=== PATIENT | male | born 1970 | race Caucasian/White ===

== ENCOUNTER 2016-05-21 19:17 | Emergency (ER) | payer MEDICAID ==
--- NOTE | 2016-05-21 19:25 | EDPHY ---
H & P HPI/ROS: CHIEF COMPLAINT: Intoxicated HISTORY OF PRESENT ILLNESS: The patient is a 46 y/o male arriving via EMS after he was found "stumbling in traffic." He has a history of hypertension, alcohol abuse, and homelessness. He reports he has not taken his hypertension medications for the last 2 weeks because he lost them. He denies any pain or trauma today. He endorses heavy alcohol use, but is unable to give a quantity. He has been cooperative for EMS and is oriented for me stating, "I'm in the [facility]." REVIEW OF SYSTEMS: A 10 point review of systems was performed and is negative with the exception of the elements mentioned in the history of present illness. * Source: Patient, EMS - Medical/Surgical History PMH: PMH includes: 1. Hypertension 2. Alcohol abuse 3. Homelessness 4. Hepatitis C Hx Asthma: No Hx Chronic Respiratory Disease: No Hx Diabetes: No Hx Cardiac Disease: No Hx Renal Disease: No Hx Cirrhosis: No Hx Alcoholism: Yes Hx HIV/AIDS: No Hx Splenectomy or Spleen Trauma: No Other PMH: Hep C, ETOH - Social History Smoking Status: Heavy smoker Alcohol Use: Heavy Additional Social History: smoker, homeless, heavy alcohol use - Physical Exam Exam: General Appearance: No acute distress. Head: Atraumatic. Eyes: Pupils equal and round, mild bilateral conjunctival injection, no discharge. Anicteric. ENT, Mouth: Mucous membranes are slightly dry, no oropharyngeal erythema or edema. Neck: No lymphadenopathy, supple. Respiratory: Lungs are clear to auscultation anterolaterally; no wheezes, rales , or rhonchi. Cardiovascular: Regular rate and rhythm; no murmur, rub, or gallop. Gastrointestinal: Abdomen is soft and non tender, no masses or organomegaly, bowel sounds normal. Skin: Warm and dry, no rashes, normal color. Healing laceration lateral to left eyebrow. Dry scaliness on scalp. Back: Nontender to palpation over the thoracolumbar spine. Extremities: No lower extremity edema, no calf tenderness or swelling. Neurological: Arouses to moderate stimulation and oriented to person and place. Moving all four extremities easily and equally. Slurred speech consistent with alcohol intoxication. Psychiatric: No agitation. Constitutional: Initial Vital Signs Temperature (C) 36.5 C 05/21/16 19:27 Heart Rate 93 05/21/16 19:27 Respiratory Rate 20 05/21/16 19:27 Blood Pressure 109/83 H 05/21/16 19:27 O2 Sat (%) 93 05/21/16 19:27 O2 Delivery Mode Room Air O2 (L/minute) 2 Allergies/Adverse Reactions: No Known Allergies Allergy (Verified 05/21/16 19:26) Home Medications: Medication Instructions Recorded Depakote 05/21/16 Propranolol Sr 05/21/16 Medical Decision Making ED Course/Re-evaluation: No signs of trauma. Presentation consistent with alcohol intoxication. Plan to observe until patient is sober enough for detox. Breathalyzer: 364. He remained stable while in ED with gradual clearing of his mental status. When he was able to ambulate on his own arrangements were made for him to be transported to [facility]. Differential Diagnosis: Altered mental status including but not limited to hypoglycemia, infectious process, electrolyte abnormality, head injury and intoxicants. - Data Points Medications Given: Discontinued Medications Chlordiazepoxide (Librium 25 Mg Prepack#6) 1 btl TAKEPADRONI EDNOW ONE Stop: 05/21/16 19:57 Last Admin: 05/22/16 01:17 Dose: 1 btl Departure - Departure Disposition: Home, Routine, Self-Care Clinical Impression: Alcoholic intoxication Qualifiers: Complication of substance-induced condition: uncomplicated Qualified Code(s): F10.120 - Alcohol abuse with intoxication, uncomplicated Condition: Good Instructions: Chlordiazepoxide (By mouth), Alcohol Intoxication (ED), Abuse of Alcohol (ED) Additional Instructions: Medically clear for the [facility]. Please use librium protocol. Referrals: [facility] 24 Hours [Outside] - As per Instructions Report Scribed for: Raissa Clay Report Scribed by: Brittany Conley Date of Report: 05/21/16 Time of Report: 19:26 Physician Review and Approval Statement: 05/22/16 00:34 Portions of this note were transcribed by the registered medical transcriptionist. I, Dr. Raissa Clay, personally performed the history, physical exam, and medical decision- making; and confirmed the accuracy of the information in the transcribed note.
[2016-05-21 19:29] VITALS: TEMP 97.7
[2016-05-21] MEDS ORDERED: CHLORDIAZEPOXIDE 25MG PREPK#6 BTL TAKEHOME ONE (19:56)
[2016-05-21 22:54] VITALS: RESP 16
[2016-05-22] MEDS ORDERED: CHLORDIAZEPOXIDE 25MG PREPK#6 BTL TAKEHOME ONE (01:14)
[2016-05-22 01:36] VITALS: BP 98/64; PULSE 87; O2SAT 97
== END 2016-05-22 01:35 | disposition home or self-care (01) ==
LOC: EDUNIT#
DX: F10.120 Alcohol abuse with intoxication, uncomplicated (principal); I10 Essential (primary) hypertension; F17.200 Nicotine dependence, unspecified, uncomplicated

== ENCOUNTER 2016-07-11 13:20 | Emergency (ER) | payer MEDICAID ==
[2016-07-11] MEDS ORDERED: LORazepam 2 MG/ML INJ IVP ONE ×2 (13:31→14:32)
--- NOTE | 2016-07-11 13:32 | EDPHY ---
H & P Time Seen by Provider: 07/11/16 13:24 HPI/ROS: CHIEF COMPLAINT: I am getting the shakes HISTORY OF PRESENT ILLNESS: This 46-year-old man presents with chief complaint of concern of alcohol withdrawal. He drinks heavily and has history of alcohol withdrawal seizures, his discharge summary dated 02/06/2015 is reviewed by myself. Patient drinks a 5th of alcohol today. Is brought in by paramedics today with feeling shaky after his last drink was yesterday. Feels pins and needles and felt sweaty even though it is raining outside. Nausea but no vomiting. Symptoms moderate today. Identical to previous withdrawal symptoms. Last seizure 2 weeks ago. REVIEW OF SYSTEMS: Eye: no change in vision ENT: no sore throat Cardiac: no chest pain or syncope Pulmonary: no cough or SOB Abdomen: HPI, no abdominal pain Musculoskeletal: no back pain Skin: no rash Neuro: no headache Constitutional: no fever : no urinary symptoms A comprehensive 10 point review of systems is otherwise negative aside from elements mentioned in the history of present illness. PAST MEDICAL HISTORY: Alcoholism with withdrawal seizures, thrombocytopenia, pneumothorax and rib fractures. Social history: Frequent alcohol, tobacco smoker General Appearance: Alert and conversant, cooperative. Eyes: No scleral icterus. ENT, Mouth: Normal mucous membranes. Respiratory: Normal respiratory effort, breath sounds equal, lungs are clear to auscultation. Cardiovascular: Regular rate and rhythm. Gastrointestinal: Abdomen is soft and non tender. Neurological: Alert and oriented x3. Normally conversant. Face symmetric, normal movement and sensation in all extremities. Moderate resting tremor. Not confused. Skin: Warm and dry, no rashes. Musculoskeletal: No peripheral edema and no joint swelling. Psychiatric: Not agitated. Denies hallucinations or suicidal ideation. Emergency Department course/MDM: Patient presents in acute mild to moderate alcohol withdrawal. No seizures or delirium tremens today. Ativan 2 mg IV. 1430: Improved, not shaking anymore. Additional 1 mg IV Ativan and discharged to the [facility] with Librium. Smoking Status: Heavy smoker Constitutional: Initial Vital Signs Temperature (C) 36.7 C 07/11/16 13:39 Heart Rate 100 07/11/16 13:39 Respiratory Rate 20 07/11/16 13:39 Blood Pressure 138/97 H 07/11/16 13:39 O2 Sat (%) 95 07/11/16 13:39 O2 Delivery Mode Room Air Allergies/Adverse Reactions: No Known Allergies Allergy (Verified 05/21/16 19:26) Home Medications: Medication Instructions Recorded Depakote 05/21/16 Propranolol Sr 05/21/16 Medical Decision Making Differential Diagnosis: Differential for shaking considered including but not limited to fever or influenza, sepsis, alcohol withdrawal , seizure disorder - Data Points Laboratory Results: Laboratory Results 07/11/16 13:45 07/11/16 13:45 07/11/16 07/11/16 13:45 13:45 WBC 5.39 10^3/uL 10^3/uL (3.80-9.50) RBC 4.65 10^6/uL 10^6/uL (4.40-6.38) Hgb 15.7 g/dL g/dL (13.7-17.5) Hct 45.9 % % (40.0-51.0) MCV 98.7 fL fL (81.5-99.8) MCH 33.8 pg pg (27.9-34.1) MCHC 34.2 g/dL g/dL (32.4-36.7) RDW 14.3 % % (11.5-15.2) Plt Count 104 10^3/uL L 10^3/uL (150-400) MPV 10.7 fL fL (8.7-11.7) Neut % (Auto) 81.3 % H % (39.3-74.2) Lymph % (Auto) 11.7 % L % (15.0-45.0) Stevens % (Auto) 5.9 % % (4.5-13.0) Eos % (Auto) 0.2 % L % (0.6-7.6) Baso % (Auto) 0.7 % % (0.3-1.7) Nucleat RBC Rel Count 0.0 % % (0.0-0.2) Absolute Neuts (auto) 4.38 10^3/uL 10^3/uL (1.70-6.50) Absolute Lymphs (auto) 0.63 10^3/uL L 10^3/uL (1.00-3.00) Absolute Monos (auto) 0.32 10^3/uL 10^3/uL (0.30-0.80) Absolute Eos (auto) 0.01 10^3/uL L 10^3/uL (0.03-0.40) Absolute Basos (auto) 0.04 10^3/uL 10^3/uL (0.02-0.10) Absolute Nucleated RBC 0.00 10^3/uL 10^3/uL (0-0.01) Immature Gran % 0.2 % % (0.0-1.1) Immature Gran # 0.01 10^3/uL 10^3/uL (0.00-0.10) Sodium 139 mEq/L mEq/L (134-144) Potassium 4.7 mEq/L mEq/L (3.5-5.2) Chloride 99 mEq/L mEq/L (97-110) Carbon Dioxide 23 mEq/l mEq/l (22-31) Anion Gap 17 mEq/L H mEq/L (8-16) BUN 8 mg/dL mg/dL (7-23) Creatinine 0.6 mg/dL L mg/dL (0.7-1.3) Estimated GFR > 60 Glucose 84 mg/dL mg/dL (70-100) Calcium 9.5 mg/dL mg/dL (8.5-10.4) Medications Given: Discontinued Medications Chlordiazepoxide (Librium 25 Mg Prepack#6) 1 btl TAKEHOME EDNOW ONE Stop: 07/11/16 14:33 Last Admin: 07/11/16 14:42 Dose: 1 btl Lorazepam (Ativan Injection) 2 mg IVP EDNOW ONE Stop: 07/11/16 13:32 Last Admin: 07/11/16 13:53 Dose: 2 mg Lorazepam (Ativan Injection) 1 mg IVP EDNOW ONE Stop: 07/11/16 14:33 Last Admin: 07/11/16 14:42 Dose: 1 mg Departure - Departure Disposition: Home, Routine, Self-Care Clinical Impression: Alcohol withdrawal Qualifiers: Complication of substance-induced condition: uncomplicated Qualified Code(s): F10.230 - Alcohol dependence with withdrawal, uncomplicated Condition: Good Instructions: Alcohol Withdrawal (ED) Referrals: Patient,NotPresent [Primary Care Provider] - As per Instructions [facility],. [Clinic] - As per Instructions
[2016-07-11 13:51] LABS: % IMMATURE GRANULYOCYTES 0.2 % (0.0-1.1); ABSOLUTE IMMATURE GRANULOCYTES 0.01 10^3/uL (0.00-0.10); ADD DIFF? NO; ADD MORPH? NO; ADD SCAN? NO; ATYPICAL LYMPHOCYTE FLAG 10 (0-99); FRAGMENT RBC FLAG 0 (0-99); HEMATOCRIT 45.9 % (40.0-51.0); HEMOGLOBIN 15.7 g/dL (13.7-17.5); LEFT SHIFT FLG 0 (0-99); LIPEMIA HEMOLYSIS FLAG 90 (0-99); MEAN CELL HEMOGLOBIN 33.8 pg (27.9-34.1); MEAN CELL HEMOGLOBIN CONCENTR. 34.2 g/dL (32.4-36.7); MEAN CELL VOLUME 98.7 fL (81.5-99.8); MEAN PLATELET VOLUME 10.7 fL (8.7-11.7); PLATELET CLUMPS FLAG 10 (0-99); PLATELET COUNT 104 10^3/uL (150-400); RED BLOOD CELL COUNT 4.65 10^6/uL (4.40-6.38); RED CELL DISTRIBUTION WIDTH 14.3 % (11.5-15.2)
[2016-07-11 14:03] LABS: ANION GAP 17 mEq/L (8-16); CALCIUM 9.5 mg/dL (8.5-10.4); CARBON DIOXIDE 23 mEq/l (22-31); CHLORIDE 99 mEq/L (97-110); CREATININE 0.6 mg/dL (0.7-1.3); GLOMERULAR FILTRATION RATE > 60; GLUCOSE 84 mg/dL (70-100); POTASSIUM 4.7 mEq/L (3.5-5.2); SODIUM 139 mEq/L (134-144)
[2016-07-11] MEDS ORDERED: CHLORDIAZEPOXIDE 25MG PREPK#6 BTL TAKEHOME ONE (14:32)
[2016-07-11 14:45] VITALS: BP 132/100; PULSE 86; RESP 16; TEMP 98.6; O2SAT 96
== END 2016-07-11 15:15 | disposition home or self-care (01) ==
LOC: EDUNIT#
DX: F10.230 Alcohol dependence with withdrawal, uncomplicated (principal); F17.200 Nicotine dependence, unspecified, uncomplicated
CPT/HCPCS: 96374; J2060

== ENCOUNTER 2016-08-13 23:51 | Emergency (ER) | payer MEDICAID ==
[2016-08-13] MEDS ORDERED: LORazepam 2 MG/ML INJ ONE (23:57)
[2016-08-13] MEDS ORDERED: LORazepam 2 MG/ML INJ IVP ONE (23:57)
[2016-08-14] MEDS ORDERED: chlordiazePOXIDE 25 MG CAP PO SCH
[2016-08-14 00:06] VITALS: RESP 16
[2016-08-14 00:28] LABS: ALANINE AMINOTRANSFERASE 724 IU/L (21-72); ALBUMIN 4.9 g/dL (3.5-5.0); ALKALINE PHOSPHATASE 93 IU/L (38-126); ANION GAP 18 mEq/L (8-16); BILIRUBIN,TOTAL 0.6 mg/dL (0.1-1.4); CALCIUM 8.8 mg/dL (8.5-10.4); CARBON DIOXIDE 22 mEq/l (22-31); CHLORIDE 114 mEq/L (97-110); CREATININE 0.7 mg/dL (0.7-1.3); GLOMERULAR FILTRATION RATE > 60; GLUCOSE 89 mg/dL (70-100); POTASSIUM 4.7 mEq/L (3.5-5.2); SODIUM 154 mEq/L (134-144); TOTAL PROTEIN 8.2 g/dL (6.3-8.2)
[2016-08-14 00:46] LABS: SPECIMEN HEMOLYSIS 122
[2016-08-14 00:47] LABS: ASPARTATE AMINOTRANSFERASE 806 IU/L (17-59); ETHANOL SERUM 436 mg/dL (0-10)
[2016-08-14] MEDS ORDERED: NS 1,000 ML IV ONE (00:48)
[2016-08-14 01:11] LABS: % IMMATURE GRANULYOCYTES 1.2 % (0.0-1.1); ABSOLUTE IMMATURE GRANULOCYTES 0.08 10^3/uL (0.00-0.10); ADD DIFF? NO; ADD MORPH? NO; ADD SCAN? NO; ATYPICAL LYMPHOCYTE FLAG 0 (0-99); FRAGMENT RBC FLAG 0 (0-99); HEMATOCRIT 52.7 % (40.0-51.0); HEMOGLOBIN 17.4 g/dL (13.7-17.5); LEFT SHIFT FLG 10 (0-99); LIPEMIA HEMOLYSIS FLAG 80 (0-99); MEAN CELL HEMOGLOBIN 34.7 pg (27.9-34.1); MEAN CELL VOLUME 105.2 fL (81.5-99.8); MEAN PLATELET VOLUME 9.9 fL (8.7-11.7); PLATELET CLUMPS FLAG 10 (0-99); PLATELET COUNT 128 10^3/uL (150-400); RED BLOOD CELL COUNT 5.01 10^6/uL (4.40-6.38); RED CELL DISTRIBUTION WIDTH 13.9 % (11.5-15.2)
[2016-08-14] MEDS ORDERED: CHLORDIAZEPOXIDE 25MG PREPK#6 BTL TAKEHOME ONE (02:47)
--- NOTE | 2016-08-14 02:49 | EDPHY ---
H & P Stated Complaint: witness AMS/poss EtOH withdrawal seizure during intake at [facility] Time Seen by Provider: 08/13/16 23:52 HPI/ROS: HPI The patient presents with concern for seizure while at the [facility] earlier tonight. He was noted to have some twitching activity which was witnessed by staff. It lasted for seconds and afterward he was tired appearing. He says he has been drinking though does have a history of seizures. He now feels tired though denies any other complaints.. REVIEW OF SYSTEMS Constitutional: No fever, no chills. Eyes: No discharge. ENT: No sore throat. Cardiovascular: No chest pain, no palpitations. Respiratory: No cough, no shortness of breath. Gastrointestinal: No abdominal pain, no vomiting. Genitourinary: No hematuria. Musculoskeletal: No back pain. Skin: No rashes. Neurological: No headache. PMHx: Seizure disorder, not on any medications Soc Hx: Alcohol abuse PHYSICAL General Appearance: Alert, no distress Eyes: Pupils equal and round no pallor or injection ENT, Mouth: Mucous membranes moist Respiratory: There are no retractions, lungs are clear to auscultation Cardiovascular: Regular rate and rhythm Gastrointestinal: Abdomen is soft and non-tender, no masses, bowel sounds normal Neurological: A&O, moves all extremities, no hand tremor Skin: Warm and dry, no rashes Musculoskeletal: Neck is supple non tender Extremities: symmetrical, full range of motion Psychiatric: Patient is oriented X 3, there is no agitation Source: Patient, EMS Exam Limitations: Intoxication - Personal History Current Tetanus/Diphtheria Vaccine: Unsure - Medical/Surgical History Hx Asthma: No Hx Chronic Respiratory Disease: No Hx Diabetes: No Hx Cardiac Disease: No Hx Renal Disease: No Hx Cirrhosis: No Hx Alcoholism: Yes Hx HIV/AIDS: No Hx Splenectomy or Spleen Trauma: No Other PMH: PMHx: Hep C, ETOH. PSHx: - Social History Smoking Status: Heavy smoker Constitutional: Initial Vital Signs Temperature (C) 36.4 C 08/14/16 00:03 Heart Rate 89 08/14/16 00:03 Respiratory Rate 16 08/14/16 00:03 Blood Pressure 127/96 H 08/14/16 00:03 O2 Sat (%) 92 08/14/16 00:03 O2 Delivery Mode Room Air Allergies/Adverse Reactions: No Known Allergies Allergy (Verified 05/21/16 19:26) Home Medications: Medication Instructions Recorded Depakote 05/21/16 Propranolol Sr 05/21/16 Medical Decision Making Differential Diagnosis: This is a 46-year-old man with history of seizure disorder, alcohol abuse who presents from the [facility] with concern for seizure like activity. Here, he appears somewhat tired, he does not have any seizure activity. He does not have any signs of alcohol withdrawal such as tachycardia , hand tremor. Differential diagnosis includes epilepsy, alcohol withdrawal seizure, alcohol intoxication. In the emergency room, the patient was given IV fluids. Basic labs were checked and showed elevated sodium, likely consistent with dehydration. Alcohol level was performed only elevated. The patient was given a dose of Ativan here. Eventually, the patient was able to walk with a steady gait and was discharged back to the [facility]. - Data Points Laboratory Results: Laboratory Results 08/13/16 23:50 08/13/16 23:50 08/13/16 08/13/16 23:50 23:50 WBC 6.78 10^3/uL 10^3/uL (3.80-9.50) RBC 5.01 10^6/uL 10^6/uL (4.40-6.38) Hgb 17.4 g/dL g/dL (13.7-17.5) Hct 52.7 % H % (40.0-51.0) MCV 105.2 fL H fL (81.5-99.8) MCH 34.7 pg H pg (27.9-34.1) MCHC 33.0 g/dL g/dL (32.4-36.7) RDW 13.9 % % (11.5-15.2) Plt Count 128 10^3/uL L 10^3/uL (150-400) MPV 9.9 fL fL (8.7-11.7) Neut % (Auto) 42.3 % % (39.3-74.2) Lymph % (Auto) 38.9 % % (15.0-45.0) Sedgwick % (Auto) 13.6 % H % (4.5-13.0) Eos % (Auto) 2.8 % % (0.6-7.6) Baso % (Auto) 1.2 % % (0.3-1.7) Nucleat RBC Rel Count 0.0 % % (0.0-0.2) Absolute Neuts (auto) 2.87 10^3/uL 10^3/uL (1.70-6.50) Absolute Lymphs (auto) 2.64 10^3/uL 10^3/uL (1.00-3.00) Absolute Monos (auto) 0.92 10^3/uL H 10^3/uL (0.30-0.80) Absolute Eos (auto) 0.19 10^3/uL 10^3/uL (0.03-0.40) Absolute Basos (auto) 0.08 10^3/uL 10^3/uL (0.02-0.10) Absolute Nucleated RBC 0.00 10^3/uL 10^3/uL (0-0.01) Immature Gran % 1.2 % H % (0.0-1.1) Immature Gran # 0.08 10^3/uL 10^3/uL (0.00-0.10) Sodium 154 mEq/L H mEq/L (134-144) Potassium 4.7 mEq/L mEq/L (3.5-5.2) Chloride 114 mEq/L H mEq/L (97-110) Carbon Dioxide 22 mEq/l mEq/l (22-31) Anion Gap 18 mEq/L H mEq/L (8-16) BUN 9 mg/dL mg/dL (7-23) Creatinine 0.7 mg/dL mg/dL (0.7-1.3) Estimated GFR > 60 Glucose 89 mg/dL mg/dL (70-100) Calcium 8.8 mg/dL mg/dL (8.5-10.4) Total Bilirubin 0.6 mg/dL mg/dL (0.1-1.4) AST 806 IU/L H IU/L (17-59) ALT 724 IU/L H IU/L (21-72) Alkaline Phosphatase 93 IU/L IU/L (38-126) Total Protein 8.2 g/dL g/dL (6.3-8.2) Albumin 4.9 g/dL g/dL (3.5-5.0) Specimen Hemolysis 122 Ethyl Alcohol 436 mg/dL H* mg/dL (0-10) Medications Given: Discontinued Medications Sodium Chloride (Ns) 1,000 mls @ 0 mls/hr IV ONCE ONE PRN Reason: Wide Open Stop: 08/14/16 00:49 Last Admin: 08/14/16 03:11 Dose: Not Given Lorazepam (Ativan Injection) 1 mg IVP EDNOW ONE Stop: 08/13/16 23:58 Last Admin: 08/14/16 00:03 Dose: 1 mg Departure - Departure Disposition: Home, Routine, Self-Care Clinical Impression: Altered mental status Qualifiers: Altered mental status type: unspecified Qualified Code(s): R41.82 - Altered mental status, unspecified Alcoholic intoxication Qualifiers: Complication of substance-induced condition: with delirium Qualified Code(s): F10.121 - Alcohol abuse with intoxication delirium Instructions: Chlordiazepoxide (By mouth), Abuse of Alcohol (ED) Referrals: NONE *PRIMARY CARE P,. [Primary Care Provider] - As per Instructions
[2016-08-14 03:12] VITALS: BP 133/94; PULSE 64; TEMP 97.9; O2SAT 96
== END 2016-08-14 04:23 | disposition home or self-care (01) ==
LOC: EDUNIT#
DX: R41.82 Altered mental status, unspecified (principal); F10.121 Alcohol abuse with intoxication delirium; F17.200 Nicotine dependence, unspecified, uncomplicated
CPT/HCPCS: 96374; G0480; J2060

== ENCOUNTER 2016-08-17 17:00 | Emergency (ER) | payer MEDICAID ==
[2016-08-17 17:16] VITALS: RESP 16
--- NOTE | 2016-08-17 17:30 | EDPHY ---
H & P Time Seen by Provider: 08/17/16 17:07 HPI/ROS: CHIEF COMPLAINT: ETOH fall HISTORY OF PRESENT ILLNESS: This is a 46-year-old presenting to the emergency department right by EMS. EMS stated pt AMS ETOH intoxication, witnesses had seen pt sitting fell landing on face, but then got up started walking with unsteady gait. Witnesses do not report LOC. REVIEW OF SYSTEMS: Review of systems is unobtainable from this patient because of alcohol intoxication Smoking Status: Heavy smoker Physical Exam: General Appearance: no distress. Eyes: Pupils equal and round no pallor or injection. ENT, Mouth: Mucous membranes moist. No mouth lacerations no malocclusion less than 1 cm superficial laceration of the bridge of nose no sutures needed Respiratory: There are no retractions, lungs are clear to auscultation. Cardiovascular: Regular rate and rhythm. Gastrointestinal: Abdomen is soft nondistended, no masses, bowel sounds normal. Neurological: Slurred speech Skin: Warm and dry, no rashes. Less than 1 cm superficial laceration noted to bridge of nose bleeding controlled. Abrasion noted to left knee, Musculoskeletal: Neck is supple nontender. Extremities: Abrasion noted to left knee bleeding controlled. symmetrical, full range of motion. Psychiatric: Patient is oriented to person, there is no agitation. Constitutional: Initial Vital Signs Temperature (C) 36.4 C 08/17/16 17:00 Heart Rate 90 08/17/16 17:00 Respiratory Rate 16 08/17/16 17:00 Blood Pressure 116/76 08/17/16 17:00 O2 Sat (%) 90 L 08/17/16 17:00 O2 Delivery Mode Room Air Allergies/Adverse Reactions: No Known Allergies Allergy (Verified 05/21/16 19:26) Home Medications: Medication Instructions Recorded Depakote 05/21/16 Propranolol Sr 05/21/16 Medical Decision Making ED Course/Re-evaluation: wound irrigation, dressing placed. Sober re-evaluation patient ambulatory with steady gait sent to the [facility] with Librium Differential Diagnosis: Other differential diagnosis considered not limited to seizure due to alcohol withdrawal, CHI , and alcohol withdrawal - Data Points Medications Given: Discontinued Medications Chlordiazepoxide (Librium 25 Mg Prepack#6) 1 btl TAKEHOME EDNOW ONE Stop: 08/17/16 19:26 Last Admin: 06/01/17 19:40 Dose: 1 btl Departure - Departure Disposition: Home, Routine, Self-Care Clinical Impression: Alcohol intoxication Qualifiers: Complication of substance-induced condition: uncomplicated Qualified Code(s): F10.120 - Alcohol abuse with intoxication, uncomplicated Condition: Good Instructions: Chlordiazepoxide (By mouth), Alcohol Intoxication (ED), Abuse of Alcohol (ED) Additional Instructions: Discussed discharge instructions 1. Stop drinking alcohol 2. Monitor for any signs of infection to wounds 3. Patient going to the [facility] Referrals: NONE *PRIMARY CARE P,. [Primary Care Provider] - As per Instructions [facility],. [Clinic] - As per Instructions
[2016-08-17] MEDS ORDERED: CHLORDIAZEPOXIDE 25MG PREPK#6 BTL TAKEHOME ONE (19:25)
[2016-08-17 20:09] VITALS: BP 143/66; PULSE 66; TEMP 97.9; O2SAT 92
== END 2016-08-17 20:09 | disposition home or self-care (01) ==
LOC: EDUNIT#
DX: F10.120 Alcohol abuse with intoxication, uncomplicated (principal); F17.200 Nicotine dependence, unspecified, uncomplicated

== ENCOUNTER 2016-10-02 15:18 | Emergency (ER) | payer MEDICAID ==
--- NOTE | 2016-10-02 15:25 | EDPHY ---
H & P HPI/ROS: HPI CHIEF COMPLAINT: Alcohol withdrawal seizure HISTORY OF PRESENT ILLNESS: This patient is a 46-year-old male homeless, presents to the emergency room, daily alcohol use he drinks vodka, he states his last drink was yesterday, presents to the emergency room by EMS after he had a generalized tonic-clonic seizure. Patient states his last drink was yesterday. He had a seizure today. He tells me takes Depakote. Tells me he has been compliant. Upon arrival here in emergency room he is comp, he is not tachycardic however he did bite the tip of his tongue with no significant laceration, he does have some tremulous extension of his arms. Past Medical History: Daily alcohol use, alcohol draw seizures Past Surgical History: No recent surgical history Social History: Daily alcohol use, homeless, tobacco, denies drugs Family History: Noncontributory ROS REVIEW OF SYSTEMS: A comprehensive 10 point review of systems is otherwise negative aside from elements mentioned in the history of present illness. Exam Constitutional appears well nontoxic, triage nursing summary reviewed, vital signs reviewed, awake/alert. Eyes normal conjunctivae and sclera, EOMI, PERRLA. HENT oropharynx tip of the tongue superficial laceration, normal inspection, atraumatic, moist mucus membranes, no epistaxis, neck supple/ no meningismus, no raccoon eyes. Respiratory clear to auscultation bilaterally, normal breath sounds, no respiratory distress, no wheezing. Cardiovascular rate normal, regular rhythm, no murmur, no edema, distal pulses normal. Gastrointestinal soft, non-tender, no rebound, no guarding, normal bowel sounds, no distension, no pulsatile mass. Genitourinary no CVA tenderness. Musculoskeletal no midline vertebral tenderness, full range of motion, no calf swelling, no tenderness of extremities, no meningismus, good pulses, neurovascularly intact. Skin pink, warm, & dry, no rash, skin atraumatic. Neurologic with arm extension has fine tremors, awake, alert and oriented x 3 , AAOx3, moves all 4 extremities equally, motor intact, sensory intact, CN II- XII intact, normal cerebellar, normal vision, normal speech. Psychiatric normal mood/affect. Heme/Lymph/Immune no lymphadenopathy. Differential Diagnosis: Includes but is not limited to in a particular order, alcohol withdrawal seizure, dehydration, electrolyte disturbance, alcohol draw. , DTs Medical Decision Making: Here in emergency room is no evidence of DTs he is somewhat tremulous. He did have a seizure prior to arrival. Patient be given 1 mg IV Ativan here, IV fluid bolus, check Depakote level blood work. Monitor closely. Re-evaluation: 163: Re-evaluation at this time patient resting comfortably. Feels better after 1 mg IV Ativan. Vital signs are stable. Blood work consistent with seizure. Low bicarb. Depakote subtherapeutic, I have given a Depakote dose here in emergency room. Patient requesting go to the [facility]. I will prescribe him Librium and discharge him to the [facility]. Source: Patient, EMS - Personal History Tetanus Vaccine Date: 2011 - Medical/Surgical History Hx Asthma: No Hx Chronic Respiratory Disease: No Hx Diabetes: No Hx Cardiac Disease: No Hx Renal Disease: No Hx Cirrhosis: No Hx Alcoholism: Yes Hx HIV/AIDS: No Hx Splenectomy or Spleen Trauma: No Other PMH: PMHx: Hep C, ETOH. PSHx: - Social History Smoking Status: Heavy smoker Constitutional: Initial Vital Signs Temperature (C) 37 C 10/02/16 15:18 Heart Rate 97 10/02/16 15:18 Respiratory Rate 16 10/02/16 15:18 Blood Pressure 135/88 H 10/02/16 15:18 O2 Sat (%) 95 10/02/16 15:18 O2 Delivery Mode Room Air Allergies/Adverse Reactions: No Known Allergies Allergy (Verified 05/21/16 19:26) Home Medications: Medication Instructions Recorded Depakote 05/21/16 Medical Decision Making - Data Points Laboratory Results: Laboratory Results 10/02/16 15:55 10/02/16 15:55 10/02/16 10/02/16 15:55 15:55 WBC 10.68 10^3/uL H 10^3/uL (3.80-9.50) RBC 4.55 10^6/uL 10^6/uL (4.40-6.38) Hgb 15.8 g/dL g/dL (13.7-17.5) Hct 46.3 % % (40.0-51.0) MCV 101.8 fL H fL (81.5-99.8) MCH 34.7 pg H pg (27.9-34.1) MCHC 34.1 g/dL g/dL (32.4-36.7) RDW 13.1 % % (11.5-15.2) Plt Count 238 10^3/uL 10^3/uL (150-400) MPV 10.3 fL fL (8.7-11.7) Neut % (Auto) 66.1 % % (39.3-74.2) Lymph % (Auto) 25.4 % % (15.0-45.0) Moody % (Auto) 6.5 % % (4.5-13.0) Eos % (Auto) 0.5 % L % (0.6-7.6) Baso % (Auto) 1.1 % % (0.3-1.7) Nucleat RBC Rel Count 0.0 % % (0.0-0.2) Absolute Neuts (auto) 7.07 10^3/uL H 10^3/uL (1.70-6.50) Absolute Lymphs (auto) 2.71 10^3/uL 10^3/uL (1.00-3.00) Absolute Monos (auto) 0.69 10^3/uL 10^3/uL (0.30-0.80) Absolute Eos (auto) 0.05 10^3/uL 10^3/uL (0.03-0.40) Absolute Basos (auto) 0.12 10^3/uL H 10^3/uL (0.02-0.10) Absolute Nucleated RBC 0.00 10^3/uL 10^3/uL (0-0.01) Immature Gran % 0.4 % % (0.0-1.1) Immature Gran # 0.04 10^3/uL 10^3/uL (0.00-0.10) Sodium 141 mEq/L mEq/L (134-144) Potassium 3.6 mEq/L mEq/L (3.5-5.2) Chloride 96 mEq/L L mEq/L (97-110) Carbon Dioxide 13 mEq/l L mEq/l (22-31) Anion Gap 32 mEq/L H mEq/L (8-16) BUN 6 mg/dL L mg/dL (7-23) Creatinine 0.7 mg/dL mg/dL (0.7-1.3) Estimated GFR > 60 Glucose 101 mg/dL H mg/dL (70-100) Calcium 9.6 mg/dL mg/dL (8.5-10.4) Valproic Acid 34.3 mcg/mL L mcg/mL (50.0-150.0) Medications Given: Discontinued Medications Sodium Chloride (Ns) 1,000 mls @ 0 mls/hr IV ONCE ONE PRN Reason: Wide Open Stop: 10/02/16 15:36 Last Admin: 10/02/16 15:46 Dose: 1,000 mls Lorazepam (Ativan Injection) 1 mg IVP EDNOW ONE Stop: 10/02/16 15:36 Last Admin: 10/02/16 15:46 Dose: 1 mg Departure - Departure Disposition: Home, Routine, Self-Care Clinical Impression: Alcohol withdrawal seizure Qualifiers: Complication of substance-induced condition: uncomplicated Qualified Code(s): F10.230 - Alcohol dependence with withdrawal, uncomplicated Condition: Good Instructions: Alcohol Withdrawal (ED) Referrals: Patient,NotPresent [Unknown] - As per Instructions
[2016-10-02] MEDS ORDERED: LORazepam 2 MG/ML INJ IVP ONE (15:35)
[2016-10-02] MEDS ORDERED: NS 1,000 ML IV ONE (15:35)
[2016-10-02 15:39] VITALS: RESP 16; TEMP 98.6
[2016-10-02 15:58] LABS: % IMMATURE GRANULYOCYTES 0.4 % (0.0-1.1); ABSOLUTE IMMATURE GRANULOCYTES 0.04 10^3/uL (0.00-0.10); ADD DIFF? NO; ADD MORPH? NO; ADD SCAN? NO; ATYPICAL LYMPHOCYTE FLAG 0 (0-99); FRAGMENT RBC FLAG 0 (0-99); HEMATOCRIT 46.3 % (40.0-51.0); HEMOGLOBIN 15.8 g/dL (13.7-17.5); LEFT SHIFT FLG 0 (0-99); LIPEMIA HEMOLYSIS FLAG 90 (0-99); MEAN CELL HEMOGLOBIN 34.7 pg (27.9-34.1); MEAN CELL HEMOGLOBIN CONCENTR. 34.1 g/dL (32.4-36.7); MEAN CELL VOLUME 101.8 fL (81.5-99.8); MEAN PLATELET VOLUME 10.3 fL (8.7-11.7); PLATELET CLUMPS FLAG 0 (0-99); PLATELET COUNT 238 10^3/uL (150-400); RED BLOOD CELL COUNT 4.55 10^6/uL (4.40-6.38); RED CELL DISTRIBUTION WIDTH 13.1 % (11.5-15.2)
[2016-10-02 16:11] LABS: ANION GAP 32 mEq/L (8-16); CALCIUM 9.6 mg/dL (8.5-10.4); CARBON DIOXIDE 13 mEq/l (22-31); CHLORIDE 96 mEq/L (97-110); CREATININE 0.7 mg/dL (0.7-1.3); GLOMERULAR FILTRATION RATE > 60; GLUCOSE 101 mg/dL (70-100); POTASSIUM 3.6 mEq/L (3.5-5.2); SODIUM 141 mEq/L (134-144)
[2016-10-02] MEDS ORDERED: CHLORDIAZEPOXIDE 25MG PREPK#6 BTL TAKEHOME ONE (16:31)
[2016-10-02] MEDS ORDERED: DIVALPROEX NA 500 MG TAB PO ONE (16:31)
[2016-10-02] MEDS ORDERED: chlordiazePOXIDE 25 MG CAP PO ONE (16:31)
[2016-10-02 17:17] VITALS: BP 131/93; PULSE 85; O2SAT 96
== END 2016-10-02 17:19 | disposition home or self-care (01) ==
LOC: EDUNIT#
DX: G40.909 Epilepsy, unspecified, not intractable, without status epilepticus (principal); F10.230 Alcohol dependence with withdrawal, uncomplicated; F17.200 Nicotine dependence, unspecified, uncomplicated; E86.9 Volume depletion, unspecified
CPT/HCPCS: 96374; J2060

== ENCOUNTER 2016-10-18 19:41 | Emergency (ER) | payer MEDICAID ==
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
[2016-10-18 19:49] VITALS: PULSE 81
[2016-10-18 20:22] LABS: ETHANOL SERUM 620 mg/dL (0-10)
[2016-10-18] MEDS ORDERED: CHLORDIAZEPOXIDE 25MG PREPK#6 BTL TAKEHOME ONE (23:33)
[2016-10-19 00:13] VITALS: BP 131/74; RESP 16; TEMP 97.9; O2SAT 91
== END 2016-10-19 00:13 | disposition home or self-care (01) ==
LOC: EDUNIT#
DX: F10.920 Alcohol use, unspecified with intoxication, uncomplicated (principal); F17.200 Nicotine dependence, unspecified, uncomplicated
CPT/HCPCS: G0480

== ENCOUNTER 2016-10-22 10:04 | Emergency (ER) | payer MEDICAID ==
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
[2016-10-22 11:04] LABS: ETHANOL SERUM 507 mg/dL (0-10)
[2016-10-22 12:28] VITALS: TEMP 97.9
[2016-10-22 13:16] VITALS: BP 114/76; PULSE 81; RESP 18; O2SAT 94
== END 2016-10-22 13:40 | disposition home or self-care (01) ==
LOC: EDUNIT#
DX: S00.01XA Abrasion of scalp, initial encounter (principal); F10.120 Alcohol abuse with intoxication, uncomplicated; Y04.0XXA Assault by unarmed brawl or fight, initial encounter
CPT/HCPCS: G0480

== ENCOUNTER 2016-12-13 23:30 | Emergency (ER) | payer MEDICAID ==
[2016-12-13 23:46] VITALS: RESP 16; TEMP 97.7
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
--- NOTE | 2016-12-14 00:42 | CPEKG ---
Heart Rate: 101 RR Interval: 594 P-R Interval: 200 QRSD Interval: 100 QT Interval: 380 QTC Interval: 493 P Vernon: 53 QRS Vernon: -62 T Wave Vernon: 34 EKG Severity - ABNORMAL ECG - EKG Impression: SINUS TACHYCARDIA EKG Impression: LEFT ANTERIOR FASCICULAR BLOCK EKG Impression: BORDERLINE PROLONGED QT INTERVAL Electronically Signed By: Didi Thornton 14-Dec-2016 06:46:40
[2016-12-14 01:11] VITALS: BP 110/80; PULSE 85; O2SAT 93
[2016-12-14] MEDS ORDERED: CHLORDIAZEPOXIDE 25MG PREPK#6 BTL TAKEHOME ONE (01:27)
== END 2016-12-14 01:10 | disposition home or self-care (01) ==
LOC: EDUNIT#
DX: R07.9 Chest pain, unspecified (principal); F10.921 Alcohol use, unspecified with intoxication delirium; F17.200 Nicotine dependence, unspecified, uncomplicated

== ENCOUNTER 2017-01-08 16:35 | Emergency (ER) | payer MEDICAID ==
[2017-01-08 16:41] VITALS: TEMP 97.9
[2017-01-08] MEDS ORDERED: DIVALPROEX ER 500 MG TAB PO SCH (17:00)
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
[2017-01-08] MEDS ORDERED: DIVALPROEX ER 500 MG TAB PO ONE (18:00)
[2017-01-08 19:33] VITALS: BP 145/87; PULSE 110; RESP 18; O2SAT 92
[2017-01-08] MEDS ORDERED: ACETAMINOPHEN 500 MG TAB PO ONE (19:41)
[2017-01-08] MEDS ORDERED: ACETAMINOPHEN 500 MG TAB ONE (19:41)
== END 2017-01-08 19:44 | disposition home or self-care (01) ==
DX: F10.929 Alcohol use, unspecified with intoxication, unspecified (principal); F17.200 Nicotine dependence, unspecified, uncomplicated

== ENCOUNTER 2017-02-06 20:54 | Emergency (ER) | payer MEDICAID ==
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
[2017-02-06 21:04] VITALS: RESP 16
[2017-02-06] MEDS ORDERED: AZITHROMYCIN 250 MG TAB PO ONE (22:36)
[2017-02-07] MEDS ORDERED: CHLORDIAZEPOXIDE 25MG PREPK#6 BTL TAKEHOME ONE (01:33)
[2017-02-07 01:43] VITALS: BP 113/65; PULSE 66; TEMP 97.9; O2SAT 92
== END 2017-02-07 01:43 | disposition home or self-care (01) ==
LOC: EDUNIT#
DX: F10.220 Alcohol dependence with intoxication, uncomplicated (principal); F17.200 Nicotine dependence, unspecified, uncomplicated

== ENCOUNTER 2017-03-04 19:52 | Emergency (ER) | payer MEDICAID ==
[2017-03-04 19:57] VITALS: RESP 18; TEMP 98.2
--- NOTE | 2017-03-04 20:05 | EDPHY ---
General Narrative: CHIEF COMPLAINT: Intoxication HISTORY OF PRESENT ILLNESS: Patient arrives by EMS and [place] [employer] with reports of intoxication. He was reportedly found sleeping on the sidewalk near [address] [place] [employer] reports that he was too intoxicated to take care of himself and to be left to his own care. He is transported here and placed on an arc hold. He denies any complaints. He is very somnolent but wakes with verbal stimuli. He is unkempt consistent with his homeless state. He has no outward signs of trauma. He denies any complaints of any kind. He will not provide any other information. REVIEW OF SYSTEMS: Ten systems reviewed and are negative unless otherwise noted in the HPI PCP: Unknown SPECIALISTS: Unknown PAST MEDICAL HISTORY: Patient will not provide any history. Per chart review there is history of alcoholism and alcohol withdrawal seizures SOCIAL HISTORY: Patient will not provide. Per chart review there is history of daily tobacco and alcohol use. FAMILY HISTORY: Unable to obtain from patient EXAMINATION General Appearance: Somnolent but wakes easily. Unkempt. Strong odor of alcohol Head: normocephalic, atraumatic. No depression, bruising or lacerations evident Eyes: Pupils equal and round, no conjunctival pallor or injection. No dysconjugate gaze ENT, Mouth: Mucous membranes moist.. Gag reflex intact. Neck: Normal inspection, supple. No crepitus, step-off or deformity. Respiratory: Mild rhonchi. No crackles, diminishment or wheezing. Cardiovascular: Regular rate and rhythm. No murmur Gastrointestinal: Abdomen is soft and nontender. No distention or tympany. Back: non-tender, no bony abnormalities Neurological: Strength is symmetric in the upper extremities. Unable to obtain remainder of exam is he will not cooperate Skin: Unclean skin Warm and dry, no rash no petechiae or purpura Extremities: Nontender, no pedal edema Psychiatric: Mood and affect normal DIFFERENTIAL DIAGNOSES: Including but not limited to acute toxication, chronic alcohol abuse MDM: 7:55 p.m. Acute alcohol intoxication. EMS and police department reports that the patient was found sleeping at [address] on a sidewalk. Bystander called for well being of the patient. Patient does not provide any complaints. He is resting comfortably with stable vital signs and no need for supplemental oxygen. He does appear to be heavily intoxicated. He is on a ARC hold by the [place] [employer]. 8:15 p.m. Security attempted to obtain a breathalyzer evaluation but he was too intoxicated to do so. 9:15 p.m. Patient re-evaluated. Still somnolent. Awakes with minimal stimulus. He is open his eyes spontaneously intermittently. Continue to monitor. 10:15 p.m. Patient re-evaluated. He is sleeping. Awakes with verbal stimulus. Vital signs remained stable. 11:20 p.m. Patient has now successfully ambulated without assistance. At this point will contact [employer] [employer] as he is on an arc hold. SUPERVISION: Patient was independently examined, but I discussed the case with my secondary supervising physician Dr. Mckee - History Smoking Status: Heavy smoker - Objective Vital Signs: Initial Vital Signs Temperature (C) 98.2 F 03/04/17 19:56 Heart Rate 63 03/04/17 19:56 Respiratory Rate 18 03/04/17 19:56 Blood Pressure 124/80 H 03/04/17 19:56 O2 Sat (%) 84 L 03/04/17 19:56 O2 Delivery Mode Room Air O2 (L/minute) 3 Allergies/Adverse Reactions: No Known Allergies Allergy (Verified 03/04/17 19:56) Home Medications: Medication Instructions [facility]ed [facility] 05[facility]16 Departure - Departure Disposition: Law Enforcement/Court/Custodial Clinical Impression: Alcohol intoxication Qualifiers: Complication of substance-induced condition: uncomplicated Qualified Code(s): F10.920 - Alcohol use, unspecified with intoxication, uncomplicated Alcohol dependence Qualifiers: Substance use status: uncomplicated Qualified Code(s): F10.20 - Alcohol dependence, uncomplicated Instructions: Alcohol Intoxication (ED) Referrals: [facility],. [Clinic] - As per Instructions
[2017-03-04 21:00] VITALS: O2SAT 95
[2017-03-04] MEDS ORDERED: AMMONIA AROMATIC 1 EACH AMP IH ONE (22:42)
[2017-03-04 23:27] VITALS: BP 115/79; PULSE 84
[2017-03-06] MEDS ORDERED: BUPIVACAINE/EPI 0.5% 30 ML SDV ONE (09:42)
== END 2017-03-04 23:27 ==
LOC: EDUNIT#
DX: F10.229 Alcohol dependence with intoxication, unspecified (principal); F17.200 Nicotine dependence, unspecified, uncomplicated